=== PATIENT | female | born 1935 | race Caucasian/White ===

== ENCOUNTER → 2023-12-21 11:45 | Outpatient (REF) | payer OTHER, SELFPAY ==
[2023-12-21 14:51] LABS: Vitamin D, 25-OH*** 86.4 ng/mL (30-80)
== END ==
LOC: REG 11:45
PROVIDERS: ATTENDING PHYSICIAN Internal Medicine Endocrinology, Diabetes & Metabolism; FAMILY PHYSICIAN Family Medicine
DX: E55.9 Vitamin D deficiency, unspecified (principal)
CPT/HCPCS: 36415; 82306

== ENCOUNTER → 2024-02-19 13:29 | Outpatient (REF) | payer OTHER, SELFPAY | LOC: RAD 13:29 | PROVIDERS: FAMILY PHYSICIAN Internal Medicine | DX: R60.0 Localized edema (principal); M79.662 Pain in left lower leg; M79.89 Other specified soft tissue disorders | CPT/HCPCS: 93971 ==

== ENCOUNTER → 2024-04-17 11:24 | Outpatient (REF) | payer OTHER, SELFPAY ==
[2024-04-17 13:52] LABS: ALT (SGPT) 20 U/L (0-35); AST (SGOT) 24 U/L (14-36); Alkaline Phosphatase 113 U/L (38-126); Blood Urea Nitrogen 14 mg/dl (7-17); Calcium 10.1 mg/dl (8.4-10.2); Carbon Dioxide 24 mmol/L (22-30); Chloride 108 mmol/L (98-107); Glucose 181 mg/dl (70-99); Potassium 4.4 mmol/L (3.5-5.1); Sodium 139 mmol/L (135-145); Total Bilirubin 0.7 mg/dl (0.2-1.3); Total Protein 6.5 g/dl (6.3-8.2); eGFR > 60.00
[2024-04-17 13:56] LABS: Glycohemoglobin (HgbA1c) 8.3 % (4.0-5.6)
[2024-04-17 14:08] LABS: Vitamin D, 25-OH*** 63.1 ng/mL (30-80)
[2024-04-17 14:22] LABS: TSH 1.13 uIU/ml (0.47-4.68)
== END ==
LOC: REG 11:24
PROVIDERS: ATTENDING PHYSICIAN Internal Medicine Endocrinology, Diabetes & Metabolism; FAMILY PHYSICIAN Family Medicine
DX: E11.9 Type 2 diabetes mellitus without complications (principal); E04.2 Nontoxic multinodular goiter; E55.9 Vitamin D deficiency, unspecified
CPT/HCPCS: 36415; 80053; 82306; 83036; 84443

== ENCOUNTER → 2024-05-13 12:12 | Outpatient (REF) | payer OTHER, SELFPAY | LOC: PAVMRI 12:12 | PROVIDERS: ATTENDING PHYSICIAN Family Medicine | DX: R42 Dizziness and giddiness (principal); G44.52 New daily persistent headache (NDPH) | CPT/HCPCS: 70551 ==

== ENCOUNTER → 2025-04-03 10:19 | Outpatient (REF) | payer OTHER, SELFPAY ==
[2025-04-03 11:32] LABS: % Basophils 0.8 % (0-2); % Eosinophils 1.4 % (0-6); % Immature Granulocytes 0.3 % (0-0.5); % Lymphocytes 20.9 % (20.5-51.1); % Monocytes 6.3 % (1.7-9.3); % Neutrophils 70.3 % (42.2-75.2); Absolute Basophils 0.1 10^3/uL (0-0.2); Absolute Eosinophils 0.1 10^3/uL (0-0.7); Absolute Lymphocytes 1.4 10^3/uL (1.2-3.4); Absolute Monocytes 0.4 10^3/uL (0.1-0.6); Absolute Neutrophils 4.6 10^3/uL (1.4-6.5); Hematocrit 40.2 % (37.0-47.0); Hemoglobin 13.5 g/dL (12.0-16.0); Mean Corp Hgb Conc. 33.6 g/dL (33.0-37.0); Mean Corpuscular Hgb 28.1 pg (27.0-31.0); Mean Corpuscular Volume 83.6 fL (81.0-99.0); Mean Platelet Volume 9.7 fL (7.4-10.4); Nucleated Red Blood Cells % 0 %; Platelet Count 210 10^3/uL (130-400); Red Blood Cell Count 4.81 10^6/uL (4.20-5.40); Red Cell Dist. Width 13.3 % (11.5-14.5); White Blood Cell Count 6.5 10^3/uL (4.8-10.8)
[2025-04-03 12:38] LABS: Glycohemoglobin (HgbA1c) 9.5 % (4.0-5.6)
[2025-04-03 14:00] LABS: TSH 0.88 uIU/ml (0.47-4.68)
[2025-04-03 14:22] LABS: ALT (SGPT) 18 U/L (0-35); AST (SGOT) 23 U/L (14-36); Alkaline Phosphatase 97 U/L (38-126); Blood Urea Nitrogen 15 mg/dl (7-17); Carbon Dioxide 24 mmol/L (22-30); Chloride 111 mmol/L (98-107); Glucose 177 mg/dl (70-99); Potassium 4.4 mmol/L (3.5-5.1); Sodium 142 mmol/L (135-145); Total Bilirubin 0.7 mg/dl (0.2-1.3); Total Protein 6.4 g/dl (6.3-8.2); eGFR > 60.00
== END ==
LOC: REG 10:19
PROVIDERS: ATTENDING PHYSICIAN Internal Medicine Endocrinology, Diabetes & Metabolism
DX: E11.65 Type 2 diabetes mellitus with hyperglycemia (principal); E04.2 Nontoxic multinodular goiter
CPT/HCPCS: 36415; 80053; 83036; 84443; 85025

== ENCOUNTER → 2025-05-06 12:58 | Outpatient (REF) | payer OTHER, SELFPAY | LOC: PAVMRI 12:58 | PROVIDERS: ATTENDING PHYSICIAN Internal Medicine Gastroenterology | DX: K76.9 Liver disease, unspecified (principal) | CPT/HCPCS: 74183; A9581 ==